=== PATIENT | female | born 1950 ===

== ENCOUNTER 2017-05-13 15:49 | Emergency (ER) | payer BC ==
[2017-05-13 16:22] VITALS: BP 165/86
--- NOTE | 2017-05-26 15:08 | UC ---
Skin Complaint HPI - HPI Summary HPI Summary: infection left fifth finger around nail---red warm swollen some skin peeling - History of Current Complaint Chief Complaint: UCUpperExtremity Time Seen by Provider: 05/13/17 16:20 Stated Complaint: FINGER INJURY Hx Obtained From: Patient ?: No Onset/Duration: Sudden Onset, Lasting Days, Still Present Timing: Constant Onset Severity: Mild Current Severity: Mild Pain Scale Used: 0-10 Numeric Location: Discrete - around left 5th fingernail Character: Swelling, Redness Aggravating Factor(s): Nothing Alleviating Factor(s): Nothing Associated Signs & Symptoms: Positive: Tenderness - Allergy/Home Medications Allergies/Adverse Reactions: Allergies Allergy/AdvReac Type Severity Reaction Status Date / Time No Known Allergies Allergy Verified 05/13/17 16:14 Home Medications: Home Medications Lisinopril TAB* [Prinivil TAB 5 MG*] 10 mg PO DAILY 05/13/17 [History Confirmed 05/13/17] Review of Systems Constitutional: Negative Skin: Other - red warm swollen left 5th finger Eyes: Negative ENT: Negative Respiratory: Negative Cardiovascular: Negative Gastrointestinal: Negative Genitourinary: Negative Motor: Negative Neurovascular: Negative Musculoskeletal: Negative Neurological: Negative Psychological: Negative Is Patient Immunocompromised?: No All Other Systems Reviewed And Are Negative: Yes PMH/Surg Hx/FS Hx/Imm Hx Previously Healthy: No Cardiovascular History: Hypertension - Surgical History Surgical History: Yes Surgery Procedure, Year, and Place: R shoulder replacement - Family History Known Family History: Positive: None - Social History Occupation: Employed Full-time Lives: With Family Alcohol Use: None Substance Use Type: None Smoking Status (MU): Never Smoked Tobacco Physical Exam Triage Information Reviewed: Yes Appearance: Well-Appearing, No Pain Distress, Well-Nourished Vital Signs: Initial Vital Signs Temp 98.7 F 05/13/17 16:15 Pulse 74 05/13/17 16:15 Resp 18 05/13/17 16:15 BP 165/86 05/13/17 16:15 Pulse Ox 98 05/13/17 16:15 Vital Signs Reviewed: Yes Eye Exam: Normal Eyes: Positive: Conjunctiva Clear ENT Exam: Normal ENT: Positive: Normal ENT inspection, Hearing grossly normal. Negative: Trismus , Muffled voice, Hoarse voice Dental Exam: Normal Neck exam: Normal Neck: Positive: Supple, Nontender Respiratory Exam: Normal Respiratory: Positive: No respiratory distress, No accessory muscle use Cardiovascular Exam: Normal Cardiovascular: Positive: RRR, Pulses Normal, Brisk Capillary Refill Musculoskeletal Exam: Normal Musculoskeletal: Positive: Strength Intact, ROM Intact, Edema @ - distal left 5th finger Neurological Exam: Normal Neurological: Positive: Alert, Muscle Tone Normal Psychological Exam: Normal Skin Exam: Other - infection around left 5th finger nail Skin: Positive: Other Course/Dx - Course Course Of Treatment: lamin owusu bactrim dsd follow with pcp - Diagnoses Provider Diagnoses: hypertension in poor control, paronychia left 5th finger nail Discharge - Sign-Out/Discharge Documenting (check all that apply): Discharge - Discharge Plan Condition: Stable Disposition: HOME Prescriptions: Sulfamethox/Trimethoprim DS* [Bactrim DS 800/160 TAB*] 1 tab PO BID #14 tab Patient Education Materials: Paronychia (ED), Hypertension (ED), Warm Compress or Soak (ED) Referrals: Jaja JAMES,Cholo Davidson [Primary Care Provider] - 2 Weeks - Billing Disposition and Condition Condition: STABLE Disposition: HOME
== END 2017-05-13 16:59 | disposition home or self-care (01) ==
LOC: UCEAST 15:49
DX: L03.012 Cellulitis of left finger (principal); I10 Essential (primary) hypertension
CPT/HCPCS: 99202; G0463